=== PATIENT | female | born 1995 | race Caucasian/White ===

== ENCOUNTER 2018-02-24 18:11 | Inpatient (IN) | payer OTHER ==
[~2018-02-24] VITALS: Ht 157.5 cm; Wt 47.2 kg
== END 2018-02-28 16:48 | disposition home or self-care (01) | DRG 866 ==
LOC: ER 18:11 → SEC-K 02-25 09:44 → MEDJ 02-25 09:44
PROC: BW40ZZZ Ultrasonography of Abdomen (ICD-10-PCS; principal; 2018-02-25)
PROC: BW2FZZZ Computerized Tomography (CT Scan) of Neck (ICD-10-PCS; 2018-02-25)
DX: B27.09 Gammaherpesviral mononucleosis with other complications (principal); B27.19 Cytomegaloviral mononucleosis with other complication; J03.00 Acute streptococcal tonsillitis, unspecified; J02.8 Acute pharyngitis due to other specified organisms; R63.0 Anorexia; R13.19 Other dysphagia